=== PATIENT | male | born 1960 | race Caucasian/White ===

== ENCOUNTER → 2018-05-16 | Outpatient (CLI) | payer OTHER | LOC: M.CT 13:56 | DX: I25.84 Coronary atherosclerosis due to calcified coronary lesion (principal) ==

== ENCOUNTER → 2018-06-12 | Outpatient (CLI) | payer OTHER ==
[2018-06-12 15:02] LABS: HEMATOCRIT 50.2 % (42.0-52.0); MCH 31.2 pg (26.0-34.0); MCHC 33.8 g/dL (28.0-37.0); MCV 92.3 fL (80.0-100.0); MPV 7.3 fl. (7.2-11.1); NUCLEATED RBCS 0 /100WBC; PLATELET COUNT* 384 thou/uL (150-400); RBC 5.44 mil/uL (4.50-6.00); RDW-CV 14.3 % (10.5-14.5); WBC 9.3 thou/uL (4.0-11.0)
[2018-06-12 15:32] LABS: ANION GAP 8 mmol/L (7-16); BUN 13 mg/dL (7-18); CALCIUM 9.1 mg/dL (8.5-10.1); CHLORIDE 103 mmol/L (98-107); CO2 29 mmol/L (21-32); GLUCOSE 88 mg/dL (70-99); POTASSIUM 4.4 mmol/L (3.5-5.1); SODIUM 140 mmol/L (136-145)
[2018-06-12 15:39] LABS: ALBUMIN 3.8 g/dL (3.4-5.0); ALKALINE PHOSPHATASE 79 U/L (46-116); CHOLESTEROL 296 mg/dL (<200); HDL CHOLESTEROL 43 mg/dL (>40); LDL CHOLESTEROL 231 mg/dL (<100); SGOT 16 U/L (15-37); SGPT 20 U/L (30-65); TC:HDL 6.9 Ratio (Not establshd); TOTAL BILIRUBIN 0.6 mg/dL (<0.1-1.0); TOTAL PROTEIN 7.2 g/dL (6.4-8.2); TRIGLYCERIDE 114 mg/dL (<150); TROPONIN-I LEVEL <0.06 ng/mL (<0.06); VLDL 23 mg/dL (<40)
[2018-06-12 15:42] LABS: SERUM ASSESSMENT Clear
[2018-06-12 15:48] LABS: ABSOLUTE EOSINOPHILS 0.2 thou/uL (0.0-0.7); ABSOLUTE LYMPHOCYTES 3.8 thou/uL (0.8-5.3); ABSOLUTE MONOCYTES 0.9 thou/uL (0.0-1.2); ABSOLUTE NEUTROPHILS 4.4 thou/uL (1.6-8.1)
[2018-06-12 15:49] LABS: PLATELET ESTIMATE ADEQUATE
== END ==
LOC: M.LAB 14:42
PROVIDERS: Family Medicine
DX: F17.210 Nicotine dependence, cigarettes, uncomplicated (principal); F10.21 Alcohol dependence, in remission; R07.89 Other chest pain; R00.2 Palpitations; Z85.72 Personal history of non-Hodgkin lymphomas; Z82.49 Family history of ischemic heart disease and other diseases of the circulatory system

== ENCOUNTER → 2018-08-23 | Outpatient (CLI) | payer OTHER ==
--- NOTE | 2018-08-24 16:15 | CARDNUC ---
[place] [address] CARDIAC NUCLEAR IMAGING REPORT Name: GERRY KAUR Room: [facility]#: [id number] Admission: 08/23/18 Attend Phys: Kishan Maguire, Discharge: Date of : 56 Date of Service: 08/24/18 1614 Report #: [id number] THIS REPORT FOR: //name// APPROVED REPORT Imaging Protocol: Rest Tc-99m/Stress Tc-99m 1 day Study performed: 08/23/2018 07:15:00 Indication: Fatigue, Dyspnea NM Tech:NADIA Couch BMI: 0 Medical History Medical History: CAD non obstructive Medications: Aspirin Resting Data Rest SPECT myocardial perfusion imaging was performed in supine position 30 minutes following the intravenous injection of 11.7 mCi of Tc-99m Sestamibi. Time of rest injection: 739 Date: 08/23/2018 The images were gated to evaluate regional wall motion and calculate left ventricular ejection fraction. Administration Route: IV Administration Site: Right AC Pharmacologic Stress Pharmacologic stress test was performed by injecting Regadenoson 0.4 mg IV push over 10-15 seconds immediately followed by the intravenous injection of 32.6 mCi of Tc-99m Sestamibi. Time of stress injection: 939 Administration Route: IV Administration Site: Right AC Gated Stress SPECT was performed 40 minutes after stress injection. The images were gated to evaluate regional wall motion and calculate left ventricular ejection fraction. Prone imaging was performed. Stress Test Details Stress Test: Pharmacologic stress testing performed using 0.4 mg of regadenoson per 5 mL given IV over 10 seconds. HR Max Heart Rate (APMHR): 161 [place] [address] CARDIAC NUCLEAR IMAGING REPORT Name: GERRY KAUR Room: [facility]#: [id number] Admission: 08/23/18 Attend Phys: Kishan Maguire, Discharge: Date of : 56 Date of Service: 08/24/18 1614 Report #: [id number] Resting HR: 65 bpm Target HR (85% APMHR): 136 bpm Max HR Achieved: 119 bpm % of APMHR: 73 HR response to stress: Normal HR response to stress BP Resting BP: 160/75 mmHg Max BP: 170/70 mmHg Recovery BP: 123/80 mmHg ECG Resting ECG: nsr Stress ECG: nsr ST Change: none Arrhythmia: none Recovery ECG: nsr Recovery ST Change: none Clinical Stress Symptoms: None Stress ECG Conclusion negative Study Quality Study: Fair Artifact: Moderate Increased GI uptake Study Data At rest, the left ventricular ejection fraction was 68%.. Post stress, the left ventricular ejection was 69%.. SSS: 2 SRS: 5 SDS: -3 TID = 1.06. Perfusion STRESS SPECT images show a small mild intensity inferior defect which is noted to be fixed when compared to the SPECT rest images. There is uniform uptake of tracer in all other segments. The prone set shows normalization of the inferior defect indicating it is likely artifact. No reversible defects are seen. Images were reviewed using 4th aspect. Wall [place] [address] CARDIAC NUCLEAR IMAGING REPORT Name: NATASHAGERRY Bushra Room: [facility]#: [id number] Admission: 08/23/18 Attend Phys: Kishan Maguire, Discharge: Date of : 56 Date of Service: 08/24/181613 Report #: [id number] Nuclear Conclusion ECG Findings: negative for ischemia Clinical Findings: negative for ischemia Nuclear Findings: negative for ischemia Exercise Capacity: not assessed Left Ventricular Function: normal Risk Study: low Negative perfusion nuclear stress test for ischemia or infarct <Conclusion> negative <ELECTRONICALLY SIGNED> By: Kishan Maguire MD, FACC 08/24/181613 13 13 Kishan Maguire MD, FACC /INF
== END ==
LOC: M.NUC 08-03 10:07
DX: R06.09 Other forms of dyspnea (principal); I25.10 Atherosclerotic heart disease of native coronary artery without angina pectoris; Z88.1 Allergy status to other antibiotic agents; Z79.82 Long term (current) use of aspirin

== ENCOUNTER 2020-07-06 12:41 | Inpatient (IN) | payer OTHER ==
[~2020-07-06] VITALS: Ht 172.7 cm; Wt 68.0 kg
--- NOTE | ~2020-07-06 | OP ---
[address] [address] OPERATIVE REPORT Name: GERRY KAUR Room: [place] [address] ADM IN M.R.#: [id number] Admission: 07/06/20 Attend Phys: Angelica Walsh Discharge: Date of : 56 Report #: [id number] THIS REPORT FOR: cc: Naun Robledo Vincent R. DO ~ Jesús Narayanan DO DICTATED BY: Henri Gurrola DO DATE OF SERVICE: 07/06/2020 PREOPERATIVE DIAGNOSIS: Acute appendicitis. POSTOPERATIVE DIAGNOSIS: Colitis. SURGEON: Jesús Narayanan DO. [employer]HALT HEATER TENDER: Henri Gurrola DO, PGY5. OPERATION PERFORMED: Diagnostic laparoscopy and appendectomy. ANESTHESIA: General, local. ESTIMATED BLOOD LOSS: 5 mL. SPECIMEN: Appendix. COMPLICATIONS: None. INDICATIONS: The patient is a 59-year-old male that presented with 3 days of abdominal pain that migrated from his umbilicus to his right lower quadrant. He underwent CT imaging, which was equivocal for appendicitis. He was informed of the risks and benefits of laparoscopic appendectomy with risks including but not limited to bleeding, infection, bowel injury and bladder injury. He voiced understanding to these and decided to proceed with surgery. DESCRIPTION OF PROCEDURE: After informed consent was obtained, the patient was brought to the operating room and placed in supine position. SCDs were on and running. Preoperative Zosyn had been given in the ER. General anesthesia was administered with an ET tube. The patient was prepped and draped in the usual sterile fashion. A surgical pause was held to confirm proper patient and procedure. Infraumbilical skin was anesthetized with 0.5% Marcaine and elevated with 2 Adson's and incised using a #15 blade. Dissection was bluntly carried down to the fascia, which was elevated with 2 Kochers. Fascia was incised using cautery. Peritoneum was bluntly entered using a finger. Stay sutures were placed on either side of the fascia with 0 Vicryl. A 12 [place] [address] OPERATIVE REPORT Name: GERRY KAUR Room: [address] [place] [facility].#: [id number] Admission: 07/06/20 Attend Phys: Angelica Walsh Discharge: Date of : 56 Report #: [id number] into the abdomen. Abdomen was insufflated. A 5 mm camera was introduced into the abdomen. A brief exploration was undertaken. There were no obvious sign of inflammation or infection. There was a thin adhesion from the cecum to the anterior abdominal wall. This was left undisturbed. A 5 mm port in the suprapubic region was placed. A laparoscopic [place] was used to reflect the small bowel, terminal ileum out of the way and identified the appendix. The appendix did not appear acutely inflamed and appeared normal. The decision was made to proceed with appendectomy. The appendix was elevated and an additional 5 mm port was placed in the left lower quadrant under direct visualization. A [place] dissector was placed through this port and used to create a window in the mesoappendix. A 45 mm purple load CovLeisureLinken stapler was fired across the base of the appendix. The appendix was elevated. An additional white load was fired across the mesoappendix. This completely detached the appendix. It was placed within an EndoCatch bag and placed aside. Staple lines were inspected and hemostatic. The laparoscopic [place] were then used to run the distal 2 feet of small bowel. There were no obvious abnormalities or inflammation. There were no signs of inflammation or creeping fat to suggest inflammatory bowel disease. There were some caliber discrepancies at segments; however, with time, these were dynamic and appeared to be part of peristalsis. The pelvis was inspected. There were no obvious abnormalities. The visible portions of the colon appeared normal. The liver appeared normal. The gallbladder appeared normal. Stomach appeared normal. There was no obvious other sources of infection or inflammation in the abdomen. The ports were removed under direct visualization. The abdomen was desufflated. Specimen was removed through the umbilical incision. Previous stay sutures were elevated. A single [id number] was used to close the fascia. Previous stay sutures were removed. Skin was closed using 4-0 Monocryl. Wounds were cleansed and dressed with Dermabond. Additional 0.5% Marcaine was injected at all incisions. All counts were correct. The patient was emerged from anesthesia and transferred to the PACU in stable condition. By: 1615 1650Jonatividad Narayanan DO /maría elena
[2020-07-06 12:54] VITALS: BP 118/77
[2020-07-06] MEDS ORDERED: PEPCID20 MG PO (12:57)
[2020-07-06] MEDS ORDERED: ASA81BEC PO (12:57)
[2020-07-06] MEDS ORDERED: CHOLESTEROL MED (12:58)
[2020-07-06 13:15] LABS: ABSOLUTE EOSINOPHILS 0.4 thou/uL (0.0-0.7); ABSOLUTE LYMPHOCYTES 3.8 thou/uL (0.8-5.3); ABSOLUTE MONOCYTES 0.9 thou/uL (0.0-1.2); BASOPHILS 0.2 %; HEMATOCRIT 45.5 % (42.0-52.0); LYMPHOCYTES 37.6 %; MCH 30.6 pg (26.0-34.0); MCV 92.5 fL (80.0-100.0); MONOCYTES 8.5 %; MPV 7.2 fl. (7.2-11.1); NUCLEATED RBCS 0 /100WBC; PLATELET COUNT* 346 thou/uL (150-400); POLYS 49.7 %; RBC 4.92 mil/uL (4.50-6.00); RDW-CV 14.8 % (10.5-14.5); WBC 10.1 thou/uL (4.0-11.0)
[2020-07-06 13:25] LABS: CALCIUM 8.6 mg/dL (8.5-10.1)
[2020-07-06 13:29] LABS: ALBUMIN 3.7 g/dL (3.4-5.0); TOTAL BILIRUBIN 0.4 mg/dL (<0.1-1.0); TOTAL PROTEIN 6.9 g/dL (6.4-8.2)
[2020-07-06 14:43] VITALS: BP 114/76
[2020-07-06] MEDS ORDERED: OXYCODONE HCL 55 MG PO (17:15)
[2020-07-06 17:18] VITALS: BP 114/76
--- NOTE | 2020-07-06 18:37 | EKG ---
[place] [address] ELECTROCARDIOGRAM REPORT Name: GERRY KAUR Room: [place] [address] ADM IN .R.#: [id number] Admission: 07/06/20 Attend Phys: Jesús Narayanan Discharge: Date of : 56 Date of Service: 07/06/20 1410 Report #: [id number] THIS REPORT FOR: //name// [facility] ED Test Date: 2020-07-06 Test Time: 14:10:00 Pat Name: GERRY KAUR Department: Room: [facility] Gender: M Oven Baker: CCD : 1960 Requested By: Mickey Black Order Number: [id number] MD: Daniel Enriquez Measurements Intervals [place] Rate: 59 P: 85 SD: 118 QRS: 61 QRSD: 117 T: 71 QT: 423 QTc: 419 Interpretive Statements Sinus rhythm Borderline short SD interval Nonspecific intraventricular conduction delay No previous ECG available for comparison Electronically Signed On 07-06-2020 18:37:34 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 07/06/20 1837 1410 1410 Daniel Enriquez MD, [facility] /EPI
== END 2020-07-06 18:27 | disposition home or self-care (01) | DRG 343 ==
LOC: M.TBA-ER 13:44
PROVIDERS: Emergency Medicine Emergency Medical Services; ADMIT Surgery; ATTEND Surgery
PROC: 0DTJ4ZZ Resection of Appendix, Percutaneous Endoscopic Approach (ICD-10-PCS; principal; 2020-07-06)
DX: K35.80 Unspecified acute appendicitis (principal); Z20.822 Contact with and (suspected) exposure to COVID-19; E78.5 Hyperlipidemia, unspecified; Z79.899 Other long term (current) drug therapy; Z79.82 Long term (current) use of aspirin; Z85.72 Personal history of non-Hodgkin lymphomas; Z92.21 Personal history of antineoplastic chemotherapy; Z88.1 Allergy status to other antibiotic agents